=== PATIENT | female | born 1945 | race Asian ===

== ENCOUNTER 2025-05-19 06:21 | Day surgery (SDC) | payer OTHER, SELFPAY ==
[2025-05-19 07:55] LABS: Glucose - Point of Care 165 mg/dl (70-99)
== END 2025-05-19 10:25 | disposition home or self-care (01) ==
LOC: GI 06:21
PROVIDERS: ATTENDING PHYSICIAN Internal Medicine Gastroenterology
DX: D50.0 Iron deficiency anemia secondary to blood loss (chronic) (principal); Z86.0100 Personal history of colon polyps, unspecified; K57.50 Diverticulosis of both small and large intestine without perforation or abscess without bleeding; K64.8 Other hemorrhoids; R12 Heartburn; K44.9 Diaphragmatic hernia without obstruction or gangrene; K21.00 Gastro-esophageal reflux disease with esophagitis, without bleeding; K31.89 Other diseases of stomach and duodenum
CPT/HCPCS: 43239; 45378; 82962; 88305; 88342

== ENCOUNTER → 2025-06-01 12:10 | Outpatient (REF) | payer OTHER, SELFPAY | LOC: RAD 12:10 | PROVIDERS: ATTENDING PHYSICIAN Internal Medicine Gastroenterology | DX: K57.32 Diverticulitis of large intestine without perforation or abscess without bleeding (principal) | CPT/HCPCS: 74176 ==